=== PATIENT | female | born 1970 | race Caucasian/White ===

== ENCOUNTER 2018-10-17 10:44 | Emergency (ER) | payer OTHER ==
[2018-10-17 11:23] LABS: PLATELET COUNT 248 10^3/uL (150-400)
--- NOTE | 2018-10-17 12:31 | EDPHY ---
H & P Time Seen by Provider: 10/17/18 11:34 HPI/ROS: Chief complaint. Chest pain HPI. 48-year-old female presents with chest discomfort for several weeks. However she was somewhat dizzy on standing today. She felt like she could pass out. She had tingling to her arms. She has had fibromyalgia with previous chest pain. She does have some pain to the left posterior thigh. Her chest discomfort is not worse with exertion. No shortness of breath or pain with deep breathing. New prescription of spironolactone about 1 month ago for acne. ROS 10 systems were reviewed and negative with the exception of the elements mentioned in the history of present illness Past Medical/Surgical History: No family history of early coronary artery disease Fibromyalgia Social History: , nonsmoker, no alcohol Smoking Status: Former smoker Physical Exam: General Appearance: Alert well-developed female mild distress vital signs are stable Eyes: Pupils equal and round no pallor or injection. ENT, Mouth: Mucous membranes are moist. Respiratory: There are no retractions, lungs are clear to auscultation. Cardiovascular: Regular rate and rhythm. Gastrointestinal: Abdomen is soft and nontender, no masses, bowel sounds normal. Neurological: Awake and alert, sensory and motor exams grossly normal. Skin: Warm and dry, no rashes. Musculoskeletal: Neck is supple nontender. Extremities symmetrical, full range of motion. Psychiatric: Patient is oriented X 3, there is no agitation. Constitutional: Initial Vital Signs Temperature (C) 36.6 C 10/17/18 10:48 Heart Rate 74 10/17/18 10:48 Respiratory Rate 16 10/17/18 10:48 Blood Pressure 130/79 H 10/17/18 10:48 O2 Sat (%) 100 10/17/18 10:48 O2 Delivery Mode Room Air Allergies/Adverse Reactions: No Known Allergies Allergy (Verified 10/17/18 10:48) Home Medications: Medication Instructions Recorded NK [No Known Home Meds] 07/24/16 Medical Decision Making - Diagnostics EKG Interpretation: EKG interpreted by me shows normal sinus rhythm normal interval and axis. QRS is normal there is no significant ST elevation or depression. No arrhythmia. The rate is 79 Imaging Results: Imaging Impressions Chest X-Ray 10/17/18 11:17 Impression: Clear lungs. No acute process. Ultrasound left lower extremity interpreted by me showing no evidence of DVT. Complex finding of French's cyst. Reviewed by me and discussed with Radiology Chest x-ray interpreted by me is normal Procedures: IV normal saline, monitor ED Course/Re-evaluation: Re-evaluation 12:30 p.m.. Patient is stable. Patient and I discussed imaging lab EKG findings. We discussed treatment plan including criteria for return importance of follow-up and further evaluation. She expresses understanding and agreement Differential Diagnosis: I considered acute coronary syndrome, pulmonary embolus, DVT. This could be side effect of her spironolactone. She really has no risk factors for early coronary artery disease - Data Points Laboratory Results: Laboratory Results 10/17/18 11:00 10/17/18 11:00 10/17/18 10/17/18 10/17/18 11:02 11:00 11:00 WBC RBC Hgb Hct MCV MCH MCHC RDW Plt Count MPV Neut % (Auto) Lymph % (Auto) Parker % (Auto) Eos % (Auto) Baso % (Auto) Nucleat RBC Rel Count Absolute Neuts (auto) Absolute Lymphs (auto) Absolute Monos (auto) Absolute Eos (auto) Absolute Basos (auto) Absolute Nucleated RBC Immature Gran % Immature Gran # D-Dimer < 0.27 ug/mLFEU ug/mLFEU (0.00-0.50) Sodium 129 mEq/L L mEq/L (135-145) Potassium 4.1 mEq/L mEq/L (3.5-5.2) Chloride 95 mEq/L L mEq/L (97-110) Carbon Dioxide 25 mEq/l mEq/l (22-31) Anion Gap 9 mEq/L mEq/L (6-14) BUN 13 mg/dL mg/dL (7-23) Creatinine 0.8 mg/dL mg/dL (0.6-1.0) Estimated GFR > 60 Glucose 122 mg/dL H mg/dL (70-100) Calcium 9.4 mg/dL mg/dL (8.5-10.4) POC Troponin I 0.00 ng/mL ng/mL (0.00-0.08) 10/17/18 11:00 WBC 6.17 10^3/uL 10^3/uL (3.80-9.50) RBC 4.26 10^6/uL 10^6/uL (4.18-5.33) Hgb 15.0 g/dL g/dL (12.6-16.3) Hct 42.6 % % (38.0-47.0) MCV 100.0 fL H fL (81.5-99.8) MCH 35.2 pg H pg (27.9-34.1) MCHC 35.2 g/dL g/dL (32.4-36.7) RDW 11.9 % % (11.5-15.2) Plt Count 248 10^3/uL 10^3/uL (150-400) MPV 9.0 fL fL (8.7-11.7) Neut % (Auto) 53.7 % % (39.3-74.2) Lymph % (Auto) 35.7 % % (15.0-45.0) Parker % (Auto) 8.3 % % (4.5-13.0) Eos % (Auto) 1.1 % % (0.6-7.6) Baso % (Auto) 1.0 % % (0.3-1.7) Nucleat RBC Rel Count 0.0 % % (0.0-0.2) Absolute Neuts (auto) 3.32 10^3/uL 10^3/uL (1.70-6.50) Absolute Lymphs (auto) 2.20 10^3/uL 10^3/uL (1.00-3.00) Absolute Monos (auto) 0.51 10^3/uL 10^3/uL (0.30-0.80) Absolute Eos (auto) 0.07 10^3/uL 10^3/uL (0.03-0.40) Absolute Basos (auto) 0.06 10^3/uL 10^3/uL (0.02-0.10) Absolute Nucleated RBC 0.00 10^3/uL 10^3/uL (0-0.01) Immature Gran % 0.2 % % (0.0-1.1) Immature Gran # 0.01 10^3/uL 10^3/uL (0.00-0.10) D-Dimer Sodium Potassium Chloride Carbon Dioxide Anion Gap BUN Creatinine Estimated GFR Glucose Calcium POC Troponin I Point of Care Test Results: Chemistry 10/17/18 11:02 POC Troponin I 0.00 ng/mL ng/mL (0.00-0.08) Departure - Departure Disposition: Home, Routine, Self-Care Clinical Impression: Chest pain Condition: Good Instructions: Chest Pain (ED) Additional Instructions: 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 [Primary Care Provider] - As per Instructions Bridget Pizano MD [Medical Doctor] - 2-3 days, call for appt.
[2018-10-17 13:06] VITALS: BP 107/77
--- NOTE | 2018-10-17 15:09 | CPEKG ---
Test Reason : OPEN Blood Pressure : / mmHG Vent. Rate : 079 BPM Atrial Rate : 079 BPM P-R Int : 154 ms QRS Dur : 088 ms QT Int : 386 ms P-R-T Axes : 074 087 036 degrees QTc Int : 443 ms Sinus rhythm Confirmed by Edwar Jean Baptiste ([id number]) on 10/17/2018 3:08:51 PM Referred By: PHYSICIAN ED Confirmed By:Edwar Jean Baptiste
== END 2018-10-17 13:06 | disposition home or self-care (01) ==
DX: R07.9 Chest pain, unspecified (principal); Z87.891 Personal history of nicotine dependence
CPT/HCPCS: 84484-ER